=== PATIENT | male | born 1995 | race Hispanic/Latino ===

== ENCOUNTER 2017-12-23 12:41 | Emergency (ER) | payer SELFPAY ==
[2017-12-23] MEDS ORDERED: Bacitracin Zinc 1 Packet ONE (13:18)
[2017-12-23] MEDS ORDERED: Ibuprofen 200 MG TAB ONE (13:31)
[2017-12-23] MEDS ORDERED: Acetaminophen 500 MG TAB ONE (13:36)
--- NOTE | 2017-12-23 14:17 | RAD ---
TWO VIEWS LEFT TIBIA AND FIBULA: COMPARISON: None. HISTORY: Left leg pain after a fall. FINDINGS: Two views of the left tibia/fibula show no evidence of acute fracture or dislocation. No soft tissue swelling is seen. No degenerative changes are present. IMPRESSION: No evidence of acute osseous abnormality. POS: [facility]
== END 2017-12-23 14:05 | disposition home or self-care (01) ==
LOC: ERS 12:41
DX: S80.12XA Contusion of left lower leg, initial encounter (principal); S80.11XA Contusion of right lower leg, initial encounter; F17.210 Nicotine dependence, cigarettes, uncomplicated; Z79.899 Other long term (current) drug therapy; W11.XXXA Fall on and from ladder, initial encounter
CPT/HCPCS: 99285